=== PATIENT | male | born 1965 | race Caucasian/White ===

== ENCOUNTER 2020-05-12 16:43 | Outpatient (REF) | payer BC, SELFPAY | END 2020-05-12 16:44 | disposition home or self-care (01) | LOC: HO.BBR 16:43 | PROVIDERS: PCP Family Medicine; Visit Provider Internal Medicine Hematology | DX: Z13.89 Encounter for screening for other disorder (principal) | CPT/HCPCS: 99195 ==

== ENCOUNTER 2020-07-14 08:55 | Outpatient (REF) | payer BC, SELFPAY | END 2020-07-14 08:56 | disposition home or self-care (01) | LOC: HO.BBR 08:55 | PROVIDERS: Visit Provider Internal Medicine Hematology | DX: Z13.89 Encounter for screening for other disorder (principal) ==

== ENCOUNTER 2020-09-10 15:39 | Outpatient (REF) | payer BC, SELFPAY | END 2020-09-10 15:40 | disposition home or self-care (01) | LOC: HO.BBR 15:39 | PROVIDERS: Visit Provider Internal Medicine Hematology | DX: Z13.89 Encounter for screening for other disorder (principal) ==

== ENCOUNTER 2020-11-06 15:40 | Outpatient (REF) | payer BC, SELFPAY | END 2020-11-06 15:41 | disposition home or self-care (01) | LOC: HO.BBR 15:40 | PROVIDERS: Visit Provider Internal Medicine Hematology | DX: Z13.89 Encounter for screening for other disorder (principal) ==

== ENCOUNTER 2021-01-07 15:42 | Outpatient (REF) | payer BC, SELFPAY | END 2021-01-07 15:43 | disposition home or self-care (01) | LOC: HO.BBR 15:42 | PROVIDERS: PCP Family Medicine; Visit Provider Internal Medicine Hematology | DX: Z13.89 Encounter for screening for other disorder (principal) ==

== ENCOUNTER 2021-03-11 15:36 | Outpatient (REF) | payer BC, SELFPAY | END 2021-03-11 15:37 | disposition home or self-care (01) | LOC: HO.BBR 15:36 | PROVIDERS: PCP Family Medicine; Visit Provider Internal Medicine Hematology | DX: Z13.89 Encounter for screening for other disorder (principal) ==

== ENCOUNTER 2021-05-21 12:55 | Outpatient (REF) | payer BC, SELFPAY | END 2021-05-21 12:56 | disposition home or self-care (01) | LOC: HO.BBR 12:55 | PROVIDERS: Visit Provider Internal Medicine Hematology | DX: Z13.89 Encounter for screening for other disorder (principal) ==

== ENCOUNTER 2021-07-30 15:41 | Outpatient (REF) | payer BC, SELFPAY | END 2021-07-30 15:42 | disposition home or self-care (01) | LOC: HO.BBR 15:41 | PROVIDERS: Visit Provider Internal Medicine Hematology | DX: Z13.89 Encounter for screening for other disorder (principal) ==

== ENCOUNTER 2021-10-08 15:13 | Outpatient (REF) | payer BC, SELFPAY | END 2021-10-08 15:14 | disposition home or self-care (01) | LOC: HO.BBR 15:13 | PROVIDERS: Visit Provider Internal Medicine Hematology | DX: Z13.89 Encounter for screening for other disorder (principal) ==

== ENCOUNTER 2021-12-16 14:59 | Outpatient (REF) | payer BC, SELFPAY | END 2021-12-16 15:00 | disposition home or self-care (01) | LOC: HO.BBR 14:59 | PROVIDERS: Visit Provider Internal Medicine Hematology | DX: Z13.89 Encounter for screening for other disorder (principal) ==

== ENCOUNTER 2022-03-03 14:58 | Outpatient (REF) | payer BC, SELFPAY | END 2022-03-03 14:59 | disposition home or self-care (01) | LOC: HO.BBR 14:58 | PROVIDERS: Visit Provider Internal Medicine Hematology | DX: Z13.89 Encounter for screening for other disorder (principal) ==

== ENCOUNTER 2022-05-20 13:02 | Outpatient (REF) | payer BC, SELFPAY | END 2022-05-20 13:03 | disposition home or self-care (01) | LOC: HO.BBR 13:02 | PROVIDERS: Visit Provider Internal Medicine Hematology | DX: Z13.89 Encounter for screening for other disorder (principal) ==

== ENCOUNTER 2022-07-29 14:54 | Outpatient (REF) | payer BC, SELFPAY | END 2022-07-29 14:55 | disposition home or self-care (01) | LOC: HO.BBR 14:54 | PROVIDERS: Visit Provider Internal Medicine Hematology | DX: Z13.89 Encounter for screening for other disorder (principal) ==

== ENCOUNTER 2022-09-23 14:59 | Outpatient (REF) | payer BC, SELFPAY | END 2022-09-23 15:00 | disposition home or self-care (01) | LOC: HO.BBR 14:59 | PROVIDERS: PCP Family Medicine; Visit Provider Internal Medicine Hematology | DX: Z13.89 Encounter for screening for other disorder (principal) ==

== ENCOUNTER 2022-12-02 15:11 | Outpatient (REF) | payer BC, SELFPAY | END 2022-12-02 15:12 | disposition home or self-care (01) | LOC: HO.BBR 15:11 | PROVIDERS: Visit Provider Internal Medicine Hematology | DX: Z13.89 Encounter for screening for other disorder (principal) ==

== ENCOUNTER 2023-02-10 14:50 | Outpatient (REF) | payer BC, SELFPAY | END 2023-02-10 14:51 | disposition home or self-care (01) | LOC: HO.BBR 14:50 | PROVIDERS: Visit Provider Internal Medicine Hematology | DX: Z13.89 Encounter for screening for other disorder (principal) ==

== ENCOUNTER 2023-06-06 13:52 | Outpatient (REF) | payer BC, SELFPAY | END 2023-06-06 13:53 | disposition home or self-care (01) | LOC: HO.BBR 13:52 | PROVIDERS: Visit Provider Internal Medicine Hematology | DX: Z13.89 Encounter for screening for other disorder (principal) ==

== ENCOUNTER 2023-08-04 15:21 | Outpatient (REF) | payer BC, SELFPAY | END 2023-08-04 15:22 | disposition home or self-care (01) | LOC: HO.BBR 15:21 | PROVIDERS: PCP Family Medicine; Visit Provider Internal Medicine Hematology | DX: Z13.89 Encounter for screening for other disorder (principal) ==

== ENCOUNTER 2023-10-13 08:03 | Outpatient (REF) | payer BC, SELFPAY | END 2023-10-13 08:04 | disposition home or self-care (01) | LOC: HO.BBR 08:03 | PROVIDERS: PCP Family Medicine; Visit Provider Internal Medicine Hematology | DX: Z13.89 Encounter for screening for other disorder (principal) ==

== ENCOUNTER 2023-11-17 14:57 | Outpatient (REF) | payer BC, SELFPAY | END 2023-11-17 14:58 | disposition home or self-care (01) | LOC: HO.BBR 14:57 | PROVIDERS: PCP Family Medicine; Visit Provider Internal Medicine Hematology | DX: Z13.89 Encounter for screening for other disorder (principal) ==

== ENCOUNTER 2024-02-01 15:40 | Outpatient (REF) | payer BC, SELFPAY | END 2024-02-01 15:41 | disposition home or self-care (01) | LOC: HO.BBR 15:40 | PROVIDERS: PCP Family Medicine; Visit Provider Internal Medicine Hematology | DX: Z13.89 Encounter for screening for other disorder (principal) ==

== ENCOUNTER 2024-04-05 08:00 | Outpatient (REF) | payer BC, SELFPAY | END 2024-04-05 08:01 | disposition home or self-care (01) | LOC: HO.BBR 08:00 | PROVIDERS: PCP Family Medicine; Visit Provider Internal Medicine Hematology | DX: Z13.89 Encounter for screening for other disorder (principal) ==

== ENCOUNTER 2024-05-31 12:50 | Outpatient (REF) | payer BC, SELFPAY | END 2024-05-31 12:51 | disposition home or self-care (01) | LOC: HO.BBR 12:50 | PROVIDERS: PCP Family Medicine; Visit Provider Internal Medicine Hematology | DX: Z13.89 Encounter for screening for other disorder (principal) ==

== ENCOUNTER 2024-08-02 15:04 | Outpatient (REF) | payer BC, SELFPAY ==
--- OUTSIDE RECORDS SUMMARY | 2024-08-02 17:41 | XMS_ITS | Continuity of Care Document ---
Author Organization [facility] Address [address] [place] [address]- Care Team Providers Care Glycerin Operator Name Role Phone Ry LENTZ, Jabier Primary Care Physician [phone] [facility] [id number] Date(s): 05/29/24 - 07/31/24 [facility] Care [address] [place] [id number] Discharge Disposition: A-D/C Home Attending Physician: Oren LENTZ(Hem/Onc), Mina Tuttle Admitting Physician: Oren LENTZ(Hem/Onc)Mina Referring Physician: Jabier Raza MD Encounter Type: Disch Recurring OP Allergies, Adverse Reactions, Alerts No Known Medication Allergies Medications atorvastatin 10 mg oral tablet 1 tablet = 10 mg, By Mouth, Daily, 0 Refills, Maintenance, 06/02/23 2:09:00 PM EST, Partial fill upon patient request if the prescription is for a schedule II opioid drug. Start Date: 06/02/23 Status: Ordered Repeat number: 1 lisinopril 40 mg oral tablet 1 tablet = 40 mg, By Mouth, Daily, # 90 tablet, 0 Refills, Maintenance, 12/21/12 3:37:37 PM EDT, Tablet Start Date: 12/21/12 Status: Ordered Quantity: 90.0 Unit: tablet Repeat number: 1 Metformin By Mouth, 0 Refills, Maintenance, 06/02/23 2:10:00 PM EST, Partial fill upon patient request if theprescription is for a schedule II opioid drug. Start Date: 06/02/23 Status: Ordered Repeat number: 1 Suprep Bowel Prep Kit oral liquid See Instructions, Follow instructions from GI, # 1 each, 0 Refills, Maintenance, 03/01/24 9:51:00 AMEDT, [id number], Partial fill upon patient request if the prescription is for a schedule II opioid drug., Follow instructions from GI, 165.1, cm, 03/01/24 9:43:00 EDT, Height, 91.9, kg, 06/02/23 10:33:00 EST, Dry Weight Start Date: 03/01/24 Status: Ordered Quantity: 1.0 Unit: each Repeat number: 1 Problem List Condition Confirmation Course Effective Dates Status H ealth Status Informant Obese class I Confirmed Active Primary hemochromatosis Confirmed Active Vital Signs Most recent to oldest [Reference Range]: 1 Height 165.1 cm (05/31/24 9:02 AM) Weight 86.9 kg (05/31/24 9:02 AM) Oxygen Saturation [94-100 %] 97 % (05/31/24 9:02 AM) Pulse Rate [55-90 bpm] 71 bpm (05/31/24 9:02 AM) Body Mass Index [18.5-24.99 kg/m2] 31.88 kg/m2 *>HHI* (05/31/24 9:02 AM) Blood Pressure [90-138/55-84 mm Hg] 133/ 71mm Hg (05/31/24 9:02 AM) Temperature [96.8-100.4 DegF] 98.1 DegF (05/31/24 9:02 AM) Mode of Delivery (Oxygen) Room air (05/31/24 9:02 AM) Blood pressure sites Arm, left (05/31/24 9:02 AM) Temperature Route Oral (05/31/24 9:02 AM) Dry Weight 86.9 kg (05/31/24 9:02 AM) Weight Obtained Via Standing scale (05/31/24 9:02 AM) Dry Weight Obtained Via Standing scale (05/31/24 9:02 AM) Social History Social History Type Response Smoking Status Never smoker; Type: Cigarettes entered on: 04/29/16 Sex Sex Representation Male (finding) Patient Care team information Care Team Personnel Name: Ann Marie Kaiser Position: S Onco RN Member Role: Primary Care Nurse Name: Marely Palacios RN Position: [facility] SN RN Member Role: Primary Care Nurse Name: Kadi Fierro RN Position: [facility] AMB Nurse Member Role: Primary Care Nurse Name: Jabier Raza MD Position: [facility] Outreach Member Role: PCP Address: [address] [place] [id number] OP Telecom: Name: Oren LENTZ(Hem/Onc)Mina Position: [facility] Physician - Oncology Med Service: Hematology & Oncology Member Role: Admitting Physician Address: [address] [place] [address] for Cancer Care [facility] [place] [address]- [place] Telecom: Care Team Related Persons Name: JORGE MILES Insurance Providers Guarantor name: VANNESSA Health Plan Information #: 1 Payer: [employer] Member Number: [id number] Policy Number: NA Group Number: [id number] Health Plan Information #: 2 Payer: [employer] Member Number: [id number] Policy Number: NA Group Number: [id number]
== END 2024-08-02 15:05 | disposition home or self-care (01) ==
LOC: HO.BBR 15:04
PROVIDERS: PCP Family Medicine; Visit Provider Internal Medicine Hematology
DX: Z13.89 Encounter for screening for other disorder (principal)

== ENCOUNTER 2024-10-11 14:39 | Outpatient (REF) | payer BC, SELFPAY | END 2024-10-11 14:40 | disposition home or self-care (01) | LOC: HO.BBR 14:39 | PROVIDERS: PCP Family Medicine; Visit Provider Internal Medicine Hematology | DX: Z13.89 Encounter for screening for other disorder (principal) ==

== ENCOUNTER 2024-12-13 14:53 | Outpatient (REF) | payer BC, SELFPAY ==
--- OUTSIDE RECORDS SUMMARY | 2024-12-13 14:56 | XMS_ITS | Clinical Summary ---
Author Organization [facility] Address [address] [place] [address] Care Team Providers Care Mobile Lounge Driver Name Role Phone Jabier Raza Primary Care Provider [phone] Allergies No known active allergies Medications lisinopriL (PRINIVIL,ZESTR IL) 40 mg tablet Take 40 mg by mouth once a day. Active atorvastatin (LIPITOR) 10 mg tablet Take 10 mg by mouth once a day. Active vitamin B complex capsule Take 1 capsule by mouth once a day. Active Social History Tobacco Use Types Packs/Day Years Used Date Smoking Tobacco: Never Smokeless Tobacco: Never Tobacco Cessation:Counseling Given: Not Answered Alcohol Use Standard Drinks/Week Comments Yes 6 (1 standard drink = 0.6 oz pur e alcohol) weekends Sex and Gender Information Value Date Recorded Sex Assigned at Male 05/21/2024 10:48 AM EST Legal Sex Male 6:03 PM EDT Gender Identity Male 05/21/2024 5:01 PM EST Sexual Orientation Choose not to disclose 2023 5:01 PM EST Last Filed Vital Signs Vital Sign Reading Time Taken Comments Blood Pressure 112/52 05/21/2024 12:56 PM EST Pulse 76 05/21/2024 12:56 PM EST Temperature 36.7 ??C (98 ??F) 05/21/2024 11:21 AM EST Respiratory Rate 16 05/21/2024 12:56 PM EST Oxygen Saturation 98% 05/21/2024 12:56 PM EST Inhaled Oxygen Concentration - - Weight 83 kg (183 lb) 05/21/2024 11:21 AM EST Height 165.1 cm (5' 5 ) 05/21/2024 11:21 AM EST Body Mass Index 30.45 05/21/2024 11:21 AM EST Plan of Treatment Health Maintenance Due Date Last Done Comments Cologuard 1965 FOBT / Fit Test 1965 HIV Screening 1965 Sigmoidoscopy 1965 Pneumococcal Vaccine: 50+ Years (1 of 1 - PCV) 2013 DTaP,Tdap,and Td Vaccines (1 - Tdap) 01/06/2016 01/05/2016 COVID-19 Vaccine (4 - 2023-2 5 season) 2024 06/14/2021, 11/07/2020, 10/17/2020 Alcohol/Substance Use Screening 07/17/2024 Influenza Vaccine (Season Ended) 2025 Colon Cancer Screening 05/21/2034 Colonoscopy 05/21/2034 05/21/2024, 05/21/2024 RSV Vaccine (60+ years old a nd patients) (1 - 1-dose 75+ series) 2038 Zoster Vaccines Completed 12/10/2021, 09/04/2021 Hepatitis B Vaccines Aged Out No long er eligible based on patient's age to complete this topic Procedures * Due to [place] [employer] law, this organization might not be sharing negative HIV tests. Procedure Name Priority Date/Time Associated Diagnosis Comments COLONOSCOPY 05/21/2024 from Last 3 Months or Most Recently Relevant to Health Maintenance Results * Due to [place] [employer] law, this organization might not be sharing negative HIV tests. * COLONOSCOPY (05/21/2024) Narrative Procedure Note Barrett Mckay MD - 05/21/2024 7:18 AM EST [facility] Patient Name: Chaim Deleon Procedure Date: 05/21/2024 7:18 AM Date of : 1965 Admit Type: Outpatient Age: 58 Room: GI PROCEDURE Gender: Male Note Status: Finalized Attending MD: Barrett Mckay MD Procedure: Colonoscopy Indications: High risk colon cancer surveillance: Personal history of colonicpolyps Comorbidities Providers: Barrett Mckay MD Referring MD: Jabier Raza MD (Referring MD) Requesting Provider: Medicines: See the Anesthesia note for documentation of the administered medications Complications: No immediate complications. Estimated Blood Loss: Estimated blood loss: none. Procedure: After I obtained informed consent, the scope was passed under direct vision. Throughout theprocedure, the patient's blood pressure, pulse, and oxygen saturations were monitored continuously. The Colonoscope was introduced through the anus and advanced to the cecum, identified by appendiceal orifice and ileocecal valve. The colonoscopy was performed without difficulty. The patient tolerated the procedure well. The quality of the bowel preparation was good. informed consent included but was not limited to fever, infections, bleeding, perforation, missed pathology, damage to a majororgan and lack of guarantee of benefit Findings: The perianal and digital rectal examinations were normal. Two sessile polyps were found in the hepatic flexure. The polyps were4 to 6 mm in size. These polyps were removed with a cold snare.Resection and retrieval were complete. A few small-mouthed diverticula were found in the sigmoid colon. No additional abnormalities were found on retroflexion. Impression: - Two 4 to 6 mm polyps at the hepatic flexure,removed with a cold snare. Resected and retrieved. - Diverticulosis in the sigmoid colon. Recommendation: - Await pathology results. - Repeat colonoscopy in 5 years for surveillance. Barrett Mckay MD 05/21/2024 12:43:58 PM This report has been signed electronically. Number of Addenda: 0 Note Initiated On: 05/21/2024 7:18 AM us Barrett Mckay MD PROVATION PROCEDURES Final Re sult from Last 3 Months or Most Recently Relevant to Health Maintenance Insurance [facility] PPO/EPO Advance Directives * Full Code (Latest Code Status on File) Date Activated Date Inactivated Comments 05/21/2024 11:19 AM 05/21/2024 3:50 PM Healthcare Agents on File Name Relationship Healthcare Agent Relationshi p Communication Joceline Deleon Spouse Health Care Agent Care Teams Mobile Lounge Driver Relationship Specialty Start Date End Date Jabier Raza [address] [place] [id number] PCP - General Family Medicine 05/21/24
== END 2024-12-13 14:54 | disposition home or self-care (01) ==
LOC: HO.BBR 14:53
PROVIDERS: PCP Family Medicine; Visit Provider Internal Medicine Hematology
DX: Z13.89 Encounter for screening for other disorder (principal)

== ENCOUNTER 2025-02-07 15:12 | Outpatient (REF) | payer BC, SELFPAY ==
--- OUTSIDE RECORDS SUMMARY | 2025-02-07 15:13 | XMS_ITS | Clinical Summary ---
Author Organization [facility] Address [address] [place] [address] Care Team Providers Care Gifts Officer Name Role Phone Jabier Raza Primary Care Provider [phone] Allergies No known active allergies Medications lisinopriL [...] 76 05/21/2024 12:56 PM EST Temperature 36.7 C (98 F) 05/21/2024 11:21 AM EST Respiratory Rate 16 [...] 10/17/2020 Alcohol/Substance Use Screening 07/17/2024 Influenza Vaccine (#1) 2025 Colon Cancer Screening 05/21/2034 Colonoscopy 05/21/2034 05/21/2024, 05/21/2024 RSV Vaccine (60+ years old a nd patients) (1 - 1-dose 75+ series) 2038 Zoster Vaccines Completed 12/10/2021, 09/04/2021 Hepatitis B Vaccines Aged Out No long er eligible based on patient's age to complete this topic Procedures * Due to [place] [email or web address] law, this organization might not be sharing negative HIV tests. Procedure Name Priority Date/Time Associated Diagnosis Comments COLONOSCOPY 05/21/2024 from Last 3 Months or Most Recently Relevant to Health Maintenance Results * Due to [place] [email or web address] law, this organization might not be sharing negative HIV tests. * COLONOSCOPY (05/21/2024) Narrative Procedure Note Barrett Mckay MD - 05/21/2024 7:18 AM EST [facility] Patient Name: Chaim Deleon Procedure Date: [...] Most Recently Relevant to Health Maintenance Insurance [facility] PPO/EPO Advance Directives * Full Code (Latest Code Status on File) Date Activated Date Inactivated Comments 05/21/2024 11:19 AM 05/21/2024 3:50 PM Healthcare Agents on File Name Relationship Healthcare Agent Relationshi p Communication Joceline Deleon Spouse Health Care Agent Care Teams Gifts Officer Relationship Specialty Start Date End Date Jabier Raza [address] [place] [phone] PCP - General Family Medicine 05/21/24
--- OUTSIDE RECORDS SUMMARY | 2025-02-07 15:13 | XMS_ITS | Clinical Summary ---
Author Organization [facility] Address [address] [place] [address] Care Team Providers Care Painter And Grader Cork Name Role Phone Unavailable Primary Care Provider Unavailabl e Social History Tobacco Use Types Packs/Day Years Used Date Smoking Tobacco: Never Assessed Sex and Gender Information Value Date Recorded Sex Assigned at Not on file Legal Sex Male 12:01 AM EDT Gender Identity Not on file Sexual Orientation Not on file Plan of Treatment Health Maintenance Due Date Last Done Comments Hepatitis C Screening 1965 DTaP/Tdap/Td (1 - Tdap) 1981 Pneumococcal 50+ years (1 of 1 - PCV) 2013 Zoster (Shingrix) (1 of 2) 2013 COVID-19 Vaccine ( - 2023-2 5 season) 2024 Influenza (#1) 2025 RSV (1 - 1-dose 75+ series) 2038 HPV Vaccine Aged Out No longer eligi ble based on patient's age to complete this topic Hep A Aged Out No longer eligi ble based on patient's age to complete this topic Hep B Aged Out No longer eligi ble based on patient's age to complete this topic Hib Aged Out No longer eligi ble based on patient's age to complete this topic Meningococcal ACWY Aged Out No longer eligible based on patient's age to complete this topic Zoster (Zostavax) Discontinued
--- OUTSIDE RECORDS SUMMARY | 2025-02-07 15:13 | XMS_ITS | Clinical Summary ---
Author Organization [facility] [email or web address] Address [address] [place] [address] Care Team Providers Care Automotive Instructor Name Role Phone Pcp, No Primary Care Provider [phone] Social History Tobacco Use Types Packs/Day Years Used Date Smoking Tobacco: Never Assessed Sex and Gender Information Value Date Recorded Sex Assigned at Not on file Legal Sex Male 9:17 PM EDT Gender Identity Not on file Sexual Orientation Not on file Plan of Treatment Health Maintenance Due Date Last Done Comments Colorectal Cancer: COLONOSCO PY Screening every 10 yrs (or Modifier) 1963 Depression: Screening Annual ly using PHQ-2/9 in Adults 18 yrs or above (or HM Modifier)([facility]) 1981 Hepatitis C Virus Infection in Adolescents and Adults: Screening (or Modifier) ([facility]) 1981 SDNC Screening Reminder: Ora rivera for all adults ([facility]) 1981 Tobacco Smoking Cessation: i n Adults excluding Women: Behavioral and Pharmacotherapy Interventions ([facility]) 1981 DTaP/Tdap/Td Vaccines ([facility]) (1 - Tdap) 1982 Colorectal Cancer Screening 45 -75 Yrs (or HM Modifier ) 2008 Colorectal Cancer: FLEXIBLE SIGMOIDOSCOPY Screening every 5 yrs 2008 Colorectal Cancer: Fecal Imm unochemical Test (FIT) Annually [facility] 2008 Colorectal Cancer: High-sens itivity gFOBT Screening Annually [facility] 2008 Colorectal Cancer: Stool Col oguard Screening every 3 yrs 2008 Colorectal Cancer:CT Colonography Screening every 5 yr s 2008 Pneumococcal Vaccination Scr eening: Patients 50+ yrs of age ([facility]) (1 of 1 - PCV) 2013 Zoster/Shingles Vaccine Seri es Screening: Adults aged 18+ yrs (or HM Modifiers)([facility]) (1 of 2) 2013 COVID-19 Vaccine Screening: Initial Series and Booster Status ([facility]) (2023- season) 2024 Flu Vaccination: Yearly for ages 18mos through 64 years (or Modifier)([facility]) 02/14/2025 RSV Vaccines (1 - 1-dose 75+ series) 2038 Medical Devices Not on file Insurance [facility] Care Teams Automotive Instructor Relationship Specialty Start Date End Date Pcp, No PCP - General Family Medicine 11/04/21
== END 2025-02-07 15:13 | disposition home or self-care (01) ==
LOC: HO.BBR 15:12
PROVIDERS: PCP Family Medicine; Visit Provider Internal Medicine Hematology
DX: Z13.89 Encounter for screening for other disorder (principal)

== ENCOUNTER 2025-04-11 07:54 | Outpatient (REF) | payer BC, SELFPAY ==
--- OUTSIDE RECORDS SUMMARY | 2025-04-11 07:58 | XMS_ITS | Clinical Summary ---
Author Organization [facility] Address [address] [place] [address] Care Team Providers Care Chief Engineer Waterworks Name Role Phone Unavailable Primary Care Provider [...] COVID-19 Vaccine ( - 2023-2 5 season) 2025 Influenza (#1) 2025 RSV (1 - 1-dose 75+ series) 2038 HPV Vaccine (No Doses Required) Completed Hep A Aged Out No longer eligi [...]
--- OUTSIDE RECORDS SUMMARY | 2025-04-11 07:58 | XMS_ITS | Clinical Summary ---
Author Organization [facility] Address [address] [place] [address] Care Team Providers Care Press Writer Name Role Phone Jabier Raza Primary Care Provider [phone] Allergies No known active allergies Medications lisinopriL [...] Test 1965 HIV Screening 1965 Sigmoidoscopy 1963 Diabetes Screening 1998 Pneumococcal Vaccine: 50+ Years (1 of 1 - PCV) 2013 DTaP,Tdap,and Td Vaccines (1 - Tdap) 01/06/2016 01/05/2016 Alcohol/Substance Use Screening 07/17/2024 COVID-19 Vaccine (4 - 2024-2 6 season) 2025 06/14/2021, 11/07/2020, 10/17/2020 Influenza Vaccine (#1) 2025 Colon Cancer Screening 05/21/2034 Colonoscopy 05/21/2034 05/21/2024, 05/21/2024 RSV Vaccine (60+ years old a nd patients) (1 - 1-dose 75+ series) 2038 Zoster Vaccines Completed 12/10/2021, 09/04/2021 Hepatitis B Vaccines Aged Out No long er eligible based on patient's age to complete this topic Procedures * Due to [place] [employer] law, this organization might not be sharing negative HIV tests. Procedure Name Priority Date/Time Associated Diagnosis Comments COLONOSCOPY 05/21/2024 from Last 3 Months or Most Recently Relevant to Health Maintenance Results * Due to [place] K[employer] law, this organization might not be sharing negative HIV tests. * COLONOSCOPY (05/21/2024) Narrative Procedure Note Barrett Mckay MD - 05/21/2024 7:18 AM EST [facility] Patient Name: Chaim Deleon Procedure Date: [...] Most Recently Relevant to Health Maintenance Insurance [facility] PPO/EPO Advance Directives * Full Code (Latest Code Status on File) Date Activated Date Inactivated Comments 05/21/2024 11:19 AM 05/21/2024 3:50 PM Healthcare Agents on File Name Relationship Healthcare Agent Relationshi p Communication Joceline Deleon Spouse Health Care Agent Care Teams Press Writer Relationship Specialty Start Date End Date Jabier Raza [address] [place] [phone] PCP - General Family Medicine 05/21/24
--- OUTSIDE RECORDS SUMMARY | 2025-04-11 07:58 | XMS_ITS | Clinical Summary ---
Author Organization [facility] [employer] Address [address] [place] [address] Care Team Providers Care Industrial Trainer Name Role Phone Pcp, No Primary Care Provider [phone] Social History Tobacco Use Types Packs/Day Years [...] Adults 18 yrs or above (or HM Modifier)([facility]) 1981 Hepatitis C Virus Infection in Adolescents and Adults: Screening (or Modifier) ([facility]) 1981 SDFL Screening Reminder: Ora rivera for all adults ([facility]) 1981 Tobacco Smoking Cessation: i n Adults excluding Women: Behavioral and Pharmacotherapy Interventions ([facility]) 1981 DTaP/Tdap/Td Vaccines ([facility]) (1 - Tdap) 1982 Colorectal Cancer Screening 45 -75 Yrs (or HM Modifier ) 2008 Colorectal Cancer: FLEXIBLE SIGMOIDOSCOPY Screening every 5 yrs 2008 Colorectal Cancer: Fecal Imm unochemical Test (FIT) Annually [facility] 2008 Colorectal Cancer: High-sens itivity gFOBT Screening Annually [facility] 2008 Colorectal Cancer: Stool Col oguard Screening every 3 yrs 2008 Colorectal Cancer:CT Colonography Screening every 5 yr s 2008 Pneumococcal Vaccination Scr eening: Patients 50+ yrs of age ([facility]) (1 of 1 - PCV) 2013 Zoster/Shingles Vaccine Seri es Screening: Adults aged 18+ yrs (or HM Modifiers)([facility]) (1 of 2) 2013 Flu Vaccination: Yearly for ages 18mos through 64 years (or Modifier)([facility]) 02/14/2025 COVID-19 Vaccine Screening: Initial Series and Booster Status ([facility]) ( - 2023- season) 2025 RSV Vaccines (1 - 1-dose 75+ series) 2038 Medical Devices Not on file Insurance [facility] Care Teams Industrial Trainer Relationship Specialty Start Date End Date Pcp, No PCP - General Family Medicine 11/04/21
== END 2025-04-11 07:55 | disposition home or self-care (01) ==
LOC: HO.BBR 07:54
PROVIDERS: PCP Family Medicine; Visit Provider Internal Medicine Hematology
DX: Z13.89 Encounter for screening for other disorder (principal)